=== PATIENT | female | born 1955 | race Hispanic/Latino ===

== ENCOUNTER 2016-07-30 11:37 | Inpatient (IN) | payer OTHER ==
[~2016-07-30] VITALS: Ht 162.6 cm; Wt 73.7 kg
[2016-07-30] VITALS (7 sets, daily range): BP systolic 179–215; BP diastolic 70–90; PULSE 60–76; RESP 15–20; O2SAT 94–98
[~2016-07-30 11:37] MED LIST: ATOR20TA65 PO; CARV12.52 PO; GLBR5T PO; HYDR25TA4 PO; IBUP200C PO; LOSA100T29 PO; METF1000 PO; SITA50TA PO
--- NOTE | 2016-07-30 13:43 | ED.REPORT ---
HPI-Dyspnea / Wheezing Date of Service Jul 30, 2016 ED Provider: Kristi Bolton MD 61 y/o female with a hx of HTN and diabetes presents to the ED complaining of constant chest pressure, onset 1 week ago. Pt also reports SOB, diaphoresis, lower extremity swelling. Pt denies cough, chills, fever, nausea and vomiting.Her sx are exacerbated by walking and laying down. She was unable to sleep last night due to the discomfort in her chest. Pt reports she currently feels better after taking Albuterol at the urgent care before arriving at the ED. She reports her sx are similar to but worse than the sx she experienced last year, which were accompanied by a headache unlike today. She took her BP medications today. Nursing Notes Stated Complaint: SOB Chief Complaint: Respiratory Complaints Nursing Notes Reviewed: Yes Allergies: Coded Allergies: No Known Allergies (Unverified , 12/04/15) Scheduled Atorvastatin Calcium (Atorvastatin Calcium) 20 Mg Tablet 20 MG PO HS Carvedilol (Carvedilol) 12.5 Mg Tablet 12.5 MG PO BIDWM Hydrochlorothiazide (Hydrochlorothiazide) 25 Mg Tablet 25 MG PO DAILY Losartan Potassium (Losartan Potassium) 100 Mg Tablet 100 MG PO DAILY Metformin (Glucophage) 1,000 Mg Tablet 1,000 MG PO BID Scheduled PRN Ibuprofen (Ibuprofen) 200 Mg Capsule 400 MG PO BID PRN PRN Headache General Time Seen by MD: 13:38 Chief Complaint Chest pain Hx Obtained From: Patient Arrived By: Walk-in Sudden in Onset?: Yes Onset Occurred: 1 week ago Symptom Duration: Constant Location: : Substernal Quality: Painful Severity: Current: Mild Severity: Maximum: Mild Recent Healthcare: No recent doctor visit Similar Sx Previous: Yes Past Medical History Past Medical History Diabetes mellitus, Type 2 Hypertension Hyperlipidemia Past Surgical History none reported Family History No pertinent family history Smoking History Never Smoker Social History Alcohol Use: Denies alcohol use Drug Use: Denies drug use Other Social History: Good social support, Local resident Ambulatory Status Independent Review of Systems Constitutional: Denies: Chills, Fever Respiratory: Reports: Shortness of breath, Denies: Non-productive cough Cardiovascular: Reports: Chest pain, Edema (Lower extremity swelling) Skin: Reports Diaphoresis Complete sys rev & neg: except as marked. GI: Denies: Nausea, Vomiting Physical Exam Initial Vital Signs Vital Signs (First) Date Time Temp Pulse Resp B/P Pulse Ox O2 Delivery O2 Flow Rate FiO2 07/30/16 11:54 36.2 64 20 215/90 95 Room Air Initial VS: Reviewed, Vital signs abnormal Head / Eyes: Atraumatic, Normocephalic, PERRL ENT: Mucous membranes moist, Conjunctiva normal, No scleral icterus Abdomen / GI: Soft, Non-tender, No guarding, No rebound, No distention Extremities: Vascular intact, Neuro intact, No swelling, No tenderness Skin: Warm, Dry, No cyanosis Neurologic: Alert, Oriented, Nonfocal Psychiatric: Mood/affect normal, Behavior normal, Normal thought content General/Constitutional: Awake, Alert, Well appearing, Cooperative, Not toxic appearing Neck: Atraumatic, Supple, Full range of motion Respiratory / Chest: Atraumatic, Breath sounds = bilat Bilateral Rales to midlung bases. Cardiovascular: Heart rate NL, Regular rhythm, Heart sounds NL, No gallop, No murmurs, No rubs 2+ edema bilaterally. Interpretation & Diagnostics Lab Results Interpretation Result Diagram: 07/30/16 1330 07/30/16 1330 Test 07/30/16 13:30 07/30/16 15:18 White Blood Count 5.9th/mm3 (3.8-10.1) Red Blood Count 3.12mil/mm3 (3.90-5.20) Hemoglobin 8.6g/dL (12.0-15.6) Hematocrit 28.0% (35.0-46.0) Mean Corpuscular Volume 89.7fL (81-100) Mean Corpuscular Hemoglobin 27.6pg (27.0-35.0) Mean Corpuscular Hemoglobin Concent 30.7% (32.0-37.0) Red Cell Distribution Width 12.6% (12.3-15.4) Platelet Count 118bil/L (150-400) Neutrophils (%) (Auto) 68.6% (40-74) Lymphocytes (%) (Auto) 21.8% (14-46) Monocytes (%) (Auto) 7.2% (4-12) Eosinophils (%) (Auto) 1.7% (0-5) Basophils (%) (Auto) 0.5% (0-3) Prothrombin Time 10.2sec (8.1-12.5) Prothromb Time International Ratio 0.95ratio Sodium Level 138mEq/L (134-144) Potassium Level 4.1mEq/L (3.5-5.2) Chloride Level 100mEq/L (97-108) Carbon Dioxide Level 24mmol/L (18-29) Blood Urea Nitrogen 36mg/dL (8-27) Creatinine 1.01mg/dL (0.57-1.00) Estimat Glomerular Filtration Rate 80mL/min (>59) Glucose Level 298mg/dL (60-99) Calcium Level 9.5mg/dL (8.5-10.1) Magnesium Level 1.8mg/dL (1.6-2.6) Total Bilirubin 0.2mg/dL (0.0-1.2) Aspartate Amino Transf (AST/SGOT) 14U/L (0-50) Alanine Aminotransferase (ALT/SGPT) 12U/L (0-32) Alkaline Phosphatase 72U/L (25-165) Troponin T < 0.010ug/L (0.0-0.011) Pro-B-Type Natriuretic Peptide 1832pg/mL (0-287) Total Protein 7.1g/dL (6.4-8.4) Albumin 4.0g/dL (3.4-5.0) Hold Lazo Top Tube Received (Received) Urine Color Straw (YELLOW) Urine Appearance Clear (CLEAR,HAZY) Urine pH 6.5 (5.0-8.0) Urine Specific [place] 1.020 (1.003-1.035) Urine Protein 100mg/dL (NEG,TRACE) Urine Glucose (UA) 250mg/dL (NEGATIVE) Urine Ketones Negativemg/dL (NEGATIVE) Urine Occult Blood Trace (NEGATIVE) Urine Nitrite Negative (NEGATIVE) Urine Bilirubin Negative (NEGATIVE) Urine Urobilinogen Normalmg/dL (NORMAL) Urine Leukocyte Esterase Negative (NEGATIVE) Urine RBC 0-2/hpf (0-2) Urine WBC 0-5/hpf (0-5) Urine Epithelial Cells Occasional/hpf (NONE-MOD) Urine Crystals None seen (NONE SEEN) Urine Bacteria None/hpf (NONE-FEW) Urine Hyaline Casts Occasional/lpf (NONE) Urine Granular Casts None seen (NONE SEEN) Urine Waxy Casts None seen (NONE SEEN) Urine Red Blood Cell Casts None seen (NONE SEEN) Urine White Blood Cell Casts None seen (NONE SEEN) Urine Mucus None seen (None Seen) Urine Trichomonas None seen (NONE SEEN) Urine Yeast None (NONE SEEN) Urinalysis Comment None Urine Culture Reflexed Not indicated ECG Interpretation ECG Interpretation: Sinus rate normal. 69 Normal Intervals No acute ST or T wave changes Time: 13:30 Interpreted by: ED physician X-Ray Chest Interpretation Chest Xray Interpretation: IMPRESSION: 1. Reticular-nodular interstitial prominence are similar to the prior exam and may be related to pulmonary edema or atypical infection. 2. Trace bilateral effusions. Dictated by: Tu Russell M.D. on 07/30/2016 at 13:26 Approved by: Tu Russell M.D. on 07/30/2016 at 13:28 View: Portable, 1 view Re-Eval/Medical Decision Med Decision/Clinical Course The patient presents with respiratory distress and hypertension. Her exam is consistent with congestive heart failure as is her x-ray and lab work. The patient was on nitroglycerin with improvement in her symptoms as well as Lasix. The patient was to receive IV blood pressure medication however it was not ordered in time, she went to the floor. The patient's hypertension may be related to her congestive heart failure may be causing her congestive heart failure. The patient was feeling improved after initial treatment. Source of Hx: Old records Re-Evaluation/Progress : Time of Eval: 15:15 Re-Evaluation/Progress Note: Pt rechecked. Informed pt of need for admission. Pt understands and agrees with the plan for admission. All questions addressed. Consultation : Referral / Consult Name: Marky Gill MD Consulted With: Hospitalist Call Returned at: 15:32 [employer]: Will see patient, Agrees with eval, Agrees with plan Counseled Regarding: Diagnosis, Lab results, Need for admission Discharge & Departure Impression: Primary Impression: CHF exacerbation Congestive heart failure type: unspecified congestive heart failure type Qualified Code: I50.9 - Heart failure, unspecified Additional Impression: Malignant hypertension Disposition: ADMITTED TO HOSPITAL Discharge Condition All VS Reviewed: Yes Referrals: Demetria Chadwick (PCP) Scribe Attestation Portions of this note were transcribed by Sheldon Carrillo and Victoria Matthew. I, , personally performed the history, physical exam and medical decision-making;I reviewed and confirmed the accuracy of the information in the transcribed note. Signed by Sheldon Carrillo and Dara Lawrence. 07/30/16 TIME copies to: Demetria Chadwick Jena M MD Jul 30, 2016 13:43 Sheldon Carrillo Jul 30, 2016 13:54
[2016-07-30] MEDS ORDERED: Nitroglycerin 2% 1 Gm Ointment TOPICAL ONE ×2 (13:55→14:30)
[2016-07-30 14:27] LABS: BASOPHILS % (AUTO) 0.5 % (0-3); EOSINOPHILS % (AUTO) 1.7 % (0-5); MONOCYTES % (AUTO) 7.2 % (4-12); Mean Corpuscular Hemoglobin 27.6 pg (27.0-35.0); Mean Corpuscular Volume 89.7 fL (81-100); NEUTROPHILS % (AUTO) 68.6 % (40-74); Platelet Count 118 bil/L (150-400)
--- NOTE | 2016-07-30 14:29 | DRSVH ---
PROCEDURE: X-RAY CHEST ONE VIEW, PORTABLE ([id number]) INDICATIONS: dyspnea TECHNIQUE: One view of the chest was acquired. COMPARISON: [facility], CR, XR CHEST 2VW, 07/30/2016, 10:32. FINDINGS: Surgical changes and devices: None. Lungs and pleura: Slight wedging of the right costophrenic angle and potentially the left costophreni c angle may be present. Reticulonodular interstitial prominence is again evident, which may be somew hat less prominent on the current study. No lobar consolidation or pneumothorax is evident. Mediastinum: Mediastinal contours appear normal. Heart size is normal. Bones and chest wall: No suspicious bony lesions. Overlying soft tissues appear unremarkable. IMPRESSION: 1. Reticular-nodular interstitial prominence are similar to the prior exam and may be related to pul monary edema or atypical infection. 2. Trace bilateral effusions. Dictated by: Tu Russell M.D. on 07/30/2016 at 13:26 Approved by: Tu Russell M.D. on 07/30/2016 at 13:28
[2016-07-30 14:42] LABS: INR 0.95 ratio
[2016-07-30 14:50] LABS: TROPONIN T < 0.010 ug/L (0.0-0.011)
[2016-07-30] MEDS ORDERED: Furosemide 10 mg/mL 4 mL Inj IVPUSH ONE (15:10)
[2016-07-30 15:35] LABS: APPEARANCE,URINE CLEAR (CLEAR,HAZY); COLOR,URINE STRAW (YELLOW)
[2016-07-30 15:36] LABS: OCCULT BLOOD,URINE TRACE (NEGATIVE); PH,URINE 6.5 (5.0-8.0); UROBILINOGEN,URINE NORMAL (NORMAL)
[2016-07-30] MEDS ORDERED: Polyethylene Glycol (PEG) 17 Gm Powder PO PRN (16:10)
[2016-07-30] MEDS ORDERED: ATEN50TA PO (16:10)
[2016-07-30] MEDS ORDERED: Alum-Mag Hydrox-Simeth 30 mL Suspension PO PRN (16:10)
[2016-07-30] MEDS ORDERED: Ondansetron 2 mg/mL 2 mL Inj IVPUSH PRN (16:10)
--- NOTE | 2016-07-30 16:46 | NUR ---
Admission Pt arrived to [facility] approx 1630 accompanied by family. Able to ambulate to BR. SBP still remains in high 190's-200s. A&Ox3, denies headache.
[2016-07-30] MEDS: Furosemide 10 mg/mL 2 mL Inj IVPUSH SCH (20:29)
[2016-07-30] MEDS: Sodium Chloride LOK Flush 10 mL Syringe IVFLUSH SCH (20:35)
--- NOTE | 2016-07-30 22:26 | PCM.HPMED ---
Subjective Date of Service Jul 30, 2016 Primary Provider: Admitting Physician: Marky Gill MD Primary Care Physician: Demetria Chadwick Attending Physician: Marky Gill MD Chief Complaint: "My blood pressure rised" History of Present Illness: Patient was seen with the [facility] collections manager u[employer]ana case #[id number]. Patient's daughter then showed up and also help to interpret. Patient's daughter is Heidy who is fluent in Upper Sorbian and Bulgarian patient is a pleasant 61-year-old female history of hypertension diabetes mellitus who presented to [facility] emergency room complaining of constant chest pressure with an onset of one week ago. Patient also reported shortness of breath, diaphoresis, lower extremity swelling. Patient denied any cough, chills, fever , nausea or vomiting. Her symptoms were exacerbated by walking and by laying down. Patient was unable to sleep last night due to the discomfort in her chest. Agent went to the clinic across the street from [facility] where "she always goes". Patient was found to have a very high blood pressure and patient was sent to [facility] emergency room. In the emergency room patient was found to have systolic blood pressure of 215 and diastolic of 90. Patient was given nitroglycerin and Lasix. Patient was found to have rales and 2+ edema on exam patient chest x-ray was found to have reticular-nodular interstitial prominence similar to prior exam and may be related to pulmonary edema and/or atypical infection. Patient had trace bilateral pleural effusions. Dr. Bolton felt that the patient presented with respiratory distress and hypertension. She felt that her exam was consistent with congestive heart failure as well as her x-ray and lab work. As the pro B-type natriuretic peptide was 1832. Patient had improvement in her symptoms with nitroglycerin and Lasix. The patient was to receive some IV blood pressure medication however patient was admitted to the hospitalist service And was admitted to the hospitalist service for further evaluation and treatment. Review of Systems: General: Patient is much more comfortable now after treatment in the emergency room. HEENT: Patient had a headache is relieved by taking two ibuprofen. The patient has some diabetic retinopathy and receives injections in her eyes partially every few months. She wears corrective lenses when needed Patient has no problems with their ears, nose or throat. Patient has no known dental problems. She has a few dental implants and has had some molars removed. Patient has no pharyngitis or history of thrush. Neck: Patient has no stiffness in the neck. Patient has no lymphadenopathy. Patient has no other problems with her neck. Pulmonary: Patient has no shortness of breath, no cough, no expectoration of sputum. Patient has no pleurisy. Patient has no chest pain. Patient has no history of asthma or COPD. Cardiovascular: Patient has no chest pain. Patient has no history of heart murmur. Patient has no palpitations. Patient has no history of myocardial infarction. Patient has no history of coronary artery disease. Gastrointestinal: Patient has no history of hepatitis A, B or C. Patient has no history of peptic ulcer disease. Patient has no history of gastroesophageal reflux disease. Patient has no history of nausea, vomiting, or diarrhea. Patient has no history of hematemesis, hematochezia, or melena. Patient has no history of colitis. Renal: Patient has no history of kidney disease. No history of kidney stones. Genitourinary: Patient has no history of dysuria, frequency, or incontinence. Patient has no previous history of genitourinary problems. Musculoskeletal: Patient has no history of muscular skeletal problems. Neurologic: Patient has no history of stroke, no history of seizure, no history of TIA. Psychiatric: Patient has no history of psychiatric problems. The remainder of the entire review of systems was reviewed with patient and is as mentioned above otherwise negative. Allergies Coded Allergies: No Known Allergies (Unverified , 12/04/15) Home Medications Scheduled Atorvastatin Calcium (Atorvastatin Calcium) 20 Mg Tablet 20 MG PO HS Carvedilol (Carvedilol) 12.5 Mg Tablet 12.5 MG PO BIDWM Hydrochlorothiazide (Hydrochlorothiazide) 25 Mg Tablet 25 MG PO DAILY Losartan Potassium (Losartan Potassium) 100 Mg Tablet 100 MG PO DAILY Metformin (Glucophage) 1,000 Mg Tablet 1,000 MG PO BID Scheduled PRN Ibuprofen (Ibuprofen) 200 Mg Capsule 400 MG PO BID PRN PRN Headache PMH Diabetes mellitus, type II Hypertension Hyperlipidemia Surgical History Patient denies any other surgery Family History Patient's father at the age of 87 of complications of COPD. He was a heavy smoker. Patient's mother is 82 years old and healthy Patient has 12 siblings and they are all healthy. Social History Hx Alcohol Use: No Hx Substance Use: No Hx Tobacco Use: No Smoking Status: Never Smoker Living Arrangement: with Family Additional Information Patient was born in [facility]. She moved to [facility] in 1989 and spent 2 years in [place]. Patient then moved to [place]. Patient has been for 44 years she is 5 para 5 and one child he currently lives in the area with her family. Exam Vital Signs Vital Sign - Last Date Time Temp Pulse Resp B/P Pulse Ox O2 Delivery O2 Flow Rate FiO2 07/30/16 19:59 36.7 60 18 179/73 98 Room Air Exam General: At the time of my exam patient was laying supine in bed with head elevated approximately 30 in no apparent distress. HEENT: Head is atraumatic and normocephalic. Eyes: Pupils are equally round and reactive to light and accommodation. Extraocular muscles are intact. Sclera are white, anicteric. Subconjunctival mucosa is pink. Ears and nose are unremarkable. Oropharynx: There are no mucosal lesions, there is no thrush , there is no pharyngitis. Neck: Is supple, there are no nodes, or masses or tenderness. Chest: Is significant for bibasilar rales. There are no wheezes or rubs. Heart: Rate, rhythm is regular. There is no murmur, rub or gallop. Abdomen: Good bowel sounds are present. Abdomen is mildly obese, soft, nontender, no organomegaly or masses were appreciated. Extremities: Are symmetrical and well perfused. There is no edema, there is no cellulitis, no rash. Neurologic: There are no focal neurological deficits. Cranial nerves II through XII are intact. There are no sensory or motor deficits. Psychiatric: Patients mood is calm and shows no sign of agitation. Genital: Deferred Rectal: Deferred Lab and Diagnostics Result Diagram: 07/30/16 1330 07/30/16 1330 X-Rays, CTs and MRIs PROCEDURE: X-RAY CHEST ONE VIEW, PORTABLE ([id number]) INDICATIONS: dyspnea TECHNIQUE: One view of the chest was acquired. COMPARISON: [facility], CR, XR CHEST 2VW, 07/30/2016, 10:32. FINDINGS: Surgical changes and devices: None. Lungs and pleura: Slight wedging of the right costophrenic angle and potentially the left costophrenic angle may be present. Reticulonodular interstitial prominence is again evident, which may be somewhat less prominent on the current study. No lobar consolidation or pneumothorax is evident. Mediastinum: Mediastinal contours appear normal. Heart size is normal. Bones and chest wall: No suspicious bony lesions. Overlying soft tissues appear unremarkable. IMPRESSION: 1. Reticular-nodular interstitial prominence are similar to the prior exam and may be related to pulmonary edema or atypical infection. 2. Trace bilateral effusions. Dictated by: Tu Russell M.D. on 07/30/2016 at 13:26 Approved by: Tu Russell M.D. on 07/30/2016 at 13:28 Assessment & Plan Patient was seen with the [facility] collections manager [place] case #[id number]. Patient's daughter then showed up and also help to interpret. Patient's daughter is eHidy who is fluent in Upper Sorbian and Bulgarian patient is a pleasant 61-year-old female history of hypertension diabetes mellitus who presented to [facility] emergency room complaining of constant chest pressure with an onset of one week ago. Patient also reported shortness of breath, diaphoresis, lower extremity swelling. Patient denied any cough, chills, fever , nausea or vomiting. Her symptoms were exacerbated by walking and by laying down. Patient was unable to sleep last night due to the discomfort in her chest. Agent went to the clinic across the street from [facility] where "she always goes". Patient was found to have a very high blood pressure and patient was sent to [facility] emergency room. In the emergency room patient was found to have systolic blood pressure of 215 and diastolic of 90. Patient was given nitroglycerin and Lasix. Patient was found to have rales and 2+ edema on exam patient chest x-ray was found to have reticular-nodular interstitial prominence similar to prior exam and may be related to pulmonary edema and/or atypical infection. Patient had trace bilateral pleural effusions. Dr. Bolton felt that the patient presented with respiratory distress and hypertension. She felt that her exam was consistent with congestive heart failure as well as her x-ray and lab work. As the pro B-type natriuretic peptide was 1832. Patient had improvement in her symptoms with nitroglycerin and Lasix. The patient was to receive some IV blood pressure medication however patient was admitted to the hospitalist service And was admitted to the hospitalist service for further evaluation and treatment. # Acute on chronic systolic congestive heart failure - Likely secondary to significant hypertension - Hypertensive urgency - We will start start Lasix along with beta romina and DAYANA inhibitor # Hypertensive urgency - We will continue with Lasix - We will increase carvedilol to 25 mg by mouth twice a day - We will add lisinopril # Hyperlipidemia - Continue statin as at home - Check lipid panel in a.m. Disposition: Patient is likely to be here more than 2 midnights for evaluation and treatment of the above problems. Therefore, patient was admitted as an inpatient. Pain Evaluation: Adequate Pain Control GI Prophylaxis: Proton Pump Inhibitor VTE Prophylaxis: Sub-Q Enoxaparin VTE Mechanical Devices: Intermittant Pneumatic CD Resuscitation Status: CPR: Attempt Resuscitation McintoshMarky MD Jul 30, 2016 22:26
[2016-07-31] VITALS (11 sets, daily range): BP systolic 174–190; BP diastolic 71–96; PULSE 58–72; RESP 16–18; O2SAT 91–96
--- NOTE | 2016-07-31 00:26 | NUR ---
BLOOD SUGAR At 2315, blood glucose was 254. Paged Dr. Herman "Blood glucose 254, no insulin ordered, only metformin. Would you like to order insulin?" Awaiting orders.
[2016-07-31] MEDS: Sodium Chloride LOK Flush 10 mL Syringe IVFLUSH SCH ×3 (00:27→16:52)
--- NOTE | 2016-07-31 01:41 | NUR ---
BLOOD PRESSURE Paged Dr. Herman "BP 174/71, no PRNs ordered." BP lowest since beginning of stay, pt still asymptomatic. Awaiting reply.
--- NOTE | 2016-07-31 04:53 | NUR ---
BP/BG BP this morning was 194/90. Blood sugar 195. Paged Dr. Herman again regarding these. Awaiting reply. Addendum: 07/31/16 at 0458 by IBRAHIMA SRIVASTAVA RN Called back, ordered to give carvedilol, losartan, and lasix early now.
[2016-07-31] MEDS: Furosemide 10 mg/mL 2 mL Inj IVPUSH SCH ×2 (05:09→21:22)
[2016-07-31] MEDS ORDERED: Furosemide 10 mg/mL 2 mL Inj IV ONE (05:25)
[2016-07-31 06:06] LABS: BASOPHILS % (AUTO) 0.7 % (0-3); EOSINOPHILS % (AUTO) 3.3 % (0-5); MONOCYTES % (AUTO) 11.2 % (4-12); Mean Corpuscular Hemoglobin 27.8 pg (27.0-35.0); Mean Corpuscular Volume 90.2 fL (81-100); NEUTROPHILS % (AUTO) 54.9 % (40-74); Platelet Count 119 bil/L (150-400)
[2016-07-31 06:45] LABS: Magnesium 1.6 mg/dL (1.6-2.6); Phosphorus 4.6 mg/dL (2.5-4.9)
[2016-07-31] MEDS: Pantoprazole 40 mg ER24 Tablet PO SCH (08:14)
--- NOTE | 2016-07-31 08:59 | DRSVH ---
PROCEDURE: X-RAY CHEST, TWO VIEWS ([id number]) INDICATIONS: Chest discomfort TECHNIQUE: 2 views of the chest were acquired. COMPARISON: [facility], CR, XR CHEST 1VW (PORTABLE), 07/30/2016, 14:03. FINDINGS: Surgical changes and devices: None. Lungs and pleura: No pleural effusions or pneumothorax. Unchanged blunting of the costophrenic angl es, unchanged. Mild appearance of increased pulmonary vascularity. Mediastinum: Mediastinal contours are normal. Heart size is normal. Bones and chest wall: No suspicious bony abnormalities. Soft tissues appear unremarkable. IMPRESSION: Mild increased pulmonary vascularity with likely trace effusions. Dictated by: Diane Jones M.D. on 07/31/2016 at 8:55 Approved by: Diane Jones M.D. on 07/31/2016 at 8:57
--- NOTE | 2016-07-31 11:50 | DRSVH ---
[facility] [address] [place] [address] Echocardiogram Report Name: IZAIAH NIETO Study Date: 07/31/2016 Height: 64 in Hospital Exam Location: [facility] Weight: 170 lb Gender: Female BSA: 1.8 m2 : 1955 Age: 61 yrs BP: 178/ 82 mmHg Reason For Study: Congestive Heart Failure Ordering Physician: HOSPITALIST [facility] Performed By: Dave Yeager Referring Physician: BERTA CURTIS Interpretation Summary The left ventricle is normal in size. Left ventricular wall thickness is borderline increased. The ejection fraction is estimated to be 55-60%. Left ventricular wall motion is normal. Assessment of diastolic parameters suggests a pseudonormalization pattern, consistent with elevated filling pressures. The right ventricle is normal in size, thickness and function. The IVC is of normal diameter and collapses greater than 50% with a sniff. This suggests a low right atrial pressure of 3 mm Hg. There is no significant valvular heart disease. No other echocardiographic abnormalities seen. Procedure: A two-dimensional transthoracic echocardiogram with color flow and Doppler was performed. The study quality was technically good. Comparison is made with the echocardiogram of 12/04/15. The patient was in normal sinus rhythm during the exam. Left Ventricle: The left ventricle is normal in size. Left ventricular wall thickness is borderline increased. The ejection fraction is estimated to be 55-60%. Left ventricular wall motion is normal. Assessment of diastolic parameters suggests a pseudonormalization pattern, consistent with elevated filling pressures. Right Ventricle: The right ventricle is normal in size, thickness and function. Atria: The left atrium is moderately dilated. Right atrial size is normal. The interatrial septum is intact with no evidence for an atrial septal defect. Mitral Valve: The mitral valve is normal. There is mild mitral regurgitation. Aortic Valve: The aortic valve is normal in structure and function. No aortic regurgitation is present. Tricuspid Valve: The tricuspid valve is normal. There is trace tricuspid regurgitation. The right ventricular systolic pressure is estimated at least 26 mmHg assuming a right atrial pressure of 3 mm Hg. Pulmonic Valve: The pulmonic valve is not well seen, but is grossly normal. There is no pulmonic valvular regurgitation. Great Vessels: The aortic root is normal size. The dimensions of the ascending aorta are normal. The pulmonary artery is normal size. The IVC is of normal diameter and collapses greater than 50% with a sniff. This suggests a low right atrial pressure of 3 mm Hg. Pericardium/ Pleura There is no pericardial effusion. There is a moderately large left-sided pleural effusion. MMode/2D Measurements & Calculations LVIDd: 4.6 cm RA long axis LVOT diam: 2.0 cm LVIDs: 3.1 cm LA A2 area: 22.1 cm AoV Opening FS: 33.9 % LA A4 area: 27.8 cm RA area EPSS: 0.66 cm LA length (vol) Ao root diam IVSd: 0.96 cm : 11.7 cm LVPWd: 1.1 cm LA vol: 85.0 ml RA vol asc Aorta Diam LA vol index : 27.2 ml RA Ao Arch Diam (Prox : 46.5 ml/m2 : 14.9 mm2 Trans): 2.5 cm LV roberts. diameter/BSA LV sys. diameter/BSA RVD1 (basal) RVD2 (mid): 3.2 cm (cm/m^2): 2.5 (cm/m^2): 1.7 TAPSE: 2.0 cm Doppler Measurements & Calculations Ao V2 max: 120.6 cm/secMV E max jono MV E/A: 1.2 TR max jono Ao max P.8 mmHg : 85.1 cm/sec Med Peak E' Jono : 239.0 cm/sec Ao mean P.4 mmHg MV A max jono TR max PG LVOT Max Jono : 72.8 cm/sec E/E' med: 16.0 : 22.8 mmHg : 85.8 cm/sec Lat Peak E' Jono PA V2 max : 73.9 cm/sec SERGIO(I,D): 2.3 cm E/E' lat: 14.9 PA mean PG sev ratio: 0.74 E/e' average : 1.3 mmHg MV dec time: 0.14 sec Ao V2 mean LV V1 max PG PA V2 mean : 87.4 cm/sec : 54.8 cm/sec Ao V2 VTI LV V1 VTI: 20.9 cmPA pr(Accel) : 31.5 mmHg SERGIO(V,D): 2.2 cm2 SERGIO indexed to BSA (cm^2/m^2): 1.3 Reading Physician:11:50 AM
[2016-07-31 15:20] LABS: Unsaturated Iron Binding 250.9 ug/dL
--- NOTE | 2016-07-31 16:07 | NUR ---
Social Work Note: Screen Note Data& Assessment: EMR reviewed. patient is a 61 y/o old female admitted on 07/30/16 for CHF Exacerbation and HTN. Pt has [employer] for insurance coverage and sees Demetria Chadwick for primary care. Pt lives in [place] with family and is independent at baseline. Pt is currently independent in her room. No discharge needs identified at this time. SW to continue to follow if any needs arise. Plan: Anticipated discharge home via POV when medically ready. No discharge needs identified at this time. SW to continue to follow if any needs arise. Perla Maza, DIDIER, ACM
--- NOTE | 2016-07-31 18:25 | PCM.PNMED ---
Subjective Date of Service Jul 31, 2016 Subjective The patient was seen with her family and her daughter Heidy acted as an box inspector as she is fluent in Lithuanian and in Monegasque. Patient is beginning to feel a bit better. She is less short of breath. She has no chest pain. She has no cough. Has no new complaints. Exam Vital Signs Vital Sign - Last Date Time Temp Pulse Resp B/P Pulse Ox O2 Delivery O2 Flow Rate FiO2 07/31/16 18:12 36.9 66 18 189/76 93 Room Air Intake and Output 07/30/16 07/30/16 07/31/16 Cumulative From/Thru 15:00 23:00 07:00 07/30/16 11:54 - 07/31/16 06:02 Intake Total 436 ml 400 ml 836 ml Output Total 1300 ml 1400 ml 2700 ml Balance -864 ml -1000 ml -1864 ml Intake Oral 436 ml 400 ml 836 ml Output Urine Total 1300 ml 1400 ml 2700 ml # Bowel Movements 0 0 0 Exam General: At the time of my exam patient was laying supine in bed with head elevated approximately 45 in no apparent distress. HEENT: Head is atraumatic and normocephalic. Eyes: Pupils are equally round and reactive to light and accommodation. Extraocular muscles are intact. Sclera are white, anicteric. Subconjunctival mucosa is pink. Ears and nose are unremarkable. Oropharynx: There are no mucosal lesions, there is no thrush , there is no pharyngitis. Neck: Is supple, there are no nodes, or masses or tenderness. Chest: Is significant for bibasilar rales. However, much clearer today. There are no wheezes or rubs. Heart: Rate, rhythm is regular. There is no murmur, rub or gallop. Abdomen: Good bowel sounds are present. Abdomen is mildly obese, soft, nontender, no organomegaly or masses were appreciated. Extremities: Are symmetrical and well perfused. There is no edema, there is no cellulitis, no rash. Neurologic: There are no focal neurological deficits. Cranial nerves II through XII are intact. There are no sensory or motor deficits. Psychiatric: Patients mood is calm and shows no sign of agitation. Genital: Deferred Rectal: Deferred Lab and Diagnostics Result Diagram: 07/31/16 0547 07/31/16 0547 X-Rays, CTs and MRIs PROCEDURE: X-RAY CHEST ONE VIEW, PORTABLE ([id number]) INDICATIONS: dyspnea TECHNIQUE: One view of the chest was acquired. COMPARISON: [facility], CR, XR CHEST 2VW, 07/30/2016, 10:32. FINDINGS: Surgical changes and devices: None. Lungs and pleura: Slight wedging of the right costophrenic angle and potentially the left costophrenic angle may be present. Reticulonodular interstitial prominence is again evident, which may be somewhat less prominent on the current study. No lobar consolidation or pneumothorax is evident. Mediastinum: Mediastinal contours appear normal. Heart size is normal. Bones and chest wall: No suspicious bony lesions. Overlying soft tissues appear unremarkable. IMPRESSION: 1. Reticular-nodular interstitial prominence are similar to the prior exam and may be related to pulmonary edema or atypical infection. 2. Trace bilateral effusions. Dictated by: Tu Russell M.D. on 07/30/2016 at 13:26 Approved by: Tu Russell M.D. on 07/30/2016 at 13:28 Cardiac Echo Impressions Echocardiogram Report Name: IZAIAH NIETO Study Date: 07/31/2016 Height: 64 in Hospital Exam Location: [facility] Weight: 170 lb Gender: Female BSA: 1.8 m2 : 1955 Age: 61 yrs BP: 178/ 82 mmHg Reason For Study: Congestive Heart Failure Ordering Physician: HOSPITALIST [facility] Performed By: Dave Yeager Referring Physician: MARKY GILL Interpretation Summary The left ventricle is normal in size. Left ventricular wall thickness is borderline increased. The ejection fraction is estimated to be 55-60%. Left ventricular wall motion is normal. Assessment of diastolic parameters suggests a pseudonormalization pattern, consistent with elevated filling pressures. The right ventricle is normal in size, thickness and function. The IVC is of normal diameter and collapses greater than 50% with a sniff. This suggests a low right atrial pressure of 3 mm Hg. There is no significant valvular heart disease. No other echocardiographic abnormalities seen. Assessment & Plan Patient was seen with the patella box inspector [place] case #[id number]. Patient's daughter then showed up and also helped to interpret. Patient's daughter is Heidy who is fluent in Monegasque and Lithuanian patient is a pleasant 61-year-old female history of hypertension diabetes mellitus who presented to [facility] emergency room complaining of constant chest pressure with an onset of one week ago. Patient also reported shortness of breath, diaphoresis, lower extremity swelling. Patient denied any cough, chills, fever , nausea or vomiting. Her symptoms were exacerbated by walking and by laying down. Patient was unable to sleep last night due to the discomfort in her chest. Agent went to the clinic across the street from [facility] where "she always goes". Patient was found to have a very high blood pressure and patient was sent to [facility] emergency room. In the emergency room patient was found to have systolic blood pressure of 215 and diastolic of 90. Patient was given nitroglycerin and Lasix. Patient was found to have rales and 2+ edema on exam patient chest x-ray was found to have reticular-nodular interstitial prominence similar to prior exam and may be related to pulmonary edema and/or atypical infection. Patient had trace bilateral pleural effusions. Dr. Bolton felt that the patient presented with respiratory distress and hypertension. She felt that her exam was consistent with congestive heart failure as well as her x-ray and lab work. As the pro B-type natriuretic peptide was 1832. Patient had improvement in her symptoms with nitroglycerin and Lasix. The patient was to receive some IV blood pressure medication however patient was admitted to the hospitalist service And was admitted to the hospitalist service for further evaluation and treatment. # Acute on chronic systolic congestive heart failure - Likely secondary to significant uncontrolled hypertension - Hypertensive urgency - We will continue Lasix along with twice a patient's usual dose of carvedilol and Cozaar. # Hypertensive urgency - We will continue with Lasix - We will increase carvedilol from 12.5 mg to 25 mg by mouth twice a day - We will continue Cozaar # Hyperlipidemia - Continue statin as at home - Check lipid panel in a.m. Disposition: Patient is likely to be here another 24-48 hours for the evaluation and treatment of the above problems. Pain Evaluation: Adequate Pain Control GI Prophylaxis: Proton Pump Inhibitor VTE Prophylaxis: Sub-Q Enoxaparin VTE Mechanical Devices: Intermittant Pneumatic CD Resuscitation Status: CPR: Attempt Resuscitation Marky Gill MD Jul 31, 2016 18:25
[2016-08-01] VITALS (10 sets, daily range): BP systolic 172–192; BP diastolic 78–96; PULSE 59–68; RESP 18; O2SAT 92–95
[2016-08-01] MEDS: Sodium Chloride LOK Flush 10 mL Syringe IVFLUSH SCH ×3 (01:05→17:03)
[2016-08-01 06:29] LABS: BASOPHILS % (AUTO) 0.7 % (0-3); EOSINOPHILS % (AUTO) 4.8 % (0-5); MONOCYTES % (AUTO) 8.6 % (4-12); Mean Corpuscular Hemoglobin 27.6 pg (27.0-35.0); Mean Corpuscular Volume 86.8 fL (81-100); NEUTROPHILS % (AUTO) 50.6 % (40-74); Platelet Count 139 bil/L (150-400)
[2016-08-01 07:00] LABS: Magnesium 1.6 mg/dL (1.6-2.6)
[2016-08-01] MEDS: Furosemide 10 mg/mL 2 mL Inj IVPUSH SCH ×2 (08:02→21:11)
[2016-08-01] MEDS: Pantoprazole 40 mg ER24 Tablet PO SCH (08:02)
[2016-08-02] VITALS (9 sets, daily range): BP systolic 170–198; BP diastolic 74–82; PULSE 57–75; RESP 14–18; O2SAT 92–96
[2016-08-02] MEDS: Sodium Chloride LOK Flush 10 mL Syringe IVFLUSH SCH ×3 (00:55→18:09)
--- NOTE | 2016-08-02 02:20 | PCM.PNMED ---
Subjective Date of Service August 01, 2016 Subjective Patient is feeling better. However she still concerned about her elevated blood pressure. Patient was seen with her daughter Heidy who is acting as an needle grader as Heidy is fluent and Kuwaiti and Chinese. Exam Vital Signs Vital Sign - Last Date Time Temp Pulse Resp B/P Pulse Ox O2 Delivery O2 Flow Rate FiO2 08/02/16 01:42 36.7 68 18 170/78 93 Room Air Intake and Output 08/01/16 08/01/16 08/02/16 Cumulative From/Thru 15:00 23:00 07:00 07/30/16 11:54 - 08/01/16 19:30 Intake Total 1000 ml 3216 ml Output Total 625 ml 4575 ml Balance 375 ml -1359 ml Intake Oral 1000 ml 3216 ml Output Urine Total 625 ml 4575 ml # Voids 4 # Bowel Movements 0 Exam General: At the time of my exam patient was laying supine in bed with head elevated approximately 30-45 in no apparent distress. HEENT: Head is atraumatic and normocephalic. Eyes: Pupils are equally round and reactive to light and accommodation. Extraocular muscles are intact. Sclera are white, anicteric. Subconjunctival mucosa is pink. Ears and nose are unremarkable. Oropharynx: There are no mucosal lesions, there is no thrush , there is no pharyngitis. Neck: Is supple, there are no nodes, or masses or tenderness. Chest: Breath sounds are much clearer today. There are no wheezes or rubs. Heart: Rate, rhythm is regular. There is no new murmur, rub or gallop. Abdomen: Good bowel sounds are present. Abdomen is mildly obese, soft, nontender, no organomegaly or masses were appreciated. Extremities: Are symmetrical and well perfused. There is no edema, there is no cellulitis, no rash. Neurologic: There are no focal neurological deficits. Cranial nerves II through XII are intact. There are no sensory or motor deficits. Psychiatric: Patients mood is calm and shows no sign of agitation. Genital: Deferred Rectal: Deferred Lab and Diagnostics Result Diagram: 08/01/16 0530 08/01/16 0530 X-Rays, CTs and MRIs PROCEDURE: X-RAY CHEST ONE VIEW, PORTABLE ([id number]) INDICATIONS: dyspnea TECHNIQUE: One view of the chest was acquired. COMPARISON: [facility], CR, XR CHEST 2VW, 07/30/2016, 10:32. FINDINGS: Surgical changes and devices: None. Lungs and pleura: Slight wedging of the right costophrenic angle and potentially the left costophrenic angle may be present. Reticulonodular interstitial prominence is again evident, which may be somewhat less prominent on the current study. No lobar consolidation or pneumothorax is evident. Mediastinum: Mediastinal contours appear normal. Heart size is normal. Bones and chest wall: No suspicious bony lesions. Overlying soft tissues appear unremarkable. IMPRESSION: 1. Reticular-nodular interstitial prominence are similar to the prior exam and may be related to pulmonary edema or atypical infection. 2. Trace bilateral effusions. Dictated by: Tu Russell M.D. on 07/30/2016 at 13:26 Approved by: Tu Russell M.D. on 07/30/2016 at 13:28 Cardiac Echo Impressions Echocardiogram Report Name: IZAIAH NIETO Study Date: 07/31/2016 Height: 64 in Hospital Exam Location: [facility] Weight: 170 lb Gender: Female BSA: 1.8 m2 : 1955 Age: 61 yrs BP: 178/ 82 mmHg Reason For Study: Congestive Heart Failure Ordering Physician: HOSPITALIST [facility] Performed By: Dave Yeager Referring Physician: MARKY CURTIS Interpretation Summary The left ventricle is normal in size. Left ventricular wall thickness is borderline increased. The ejection fraction is estimated to be 55-60%. Left ventricular wall motion is normal. Assessment of diastolic parameters suggests a pseudonormalization pattern, consistent with elevated filling pressures. The right ventricle is normal in size, thickness and function. The IVC is of normal diameter and collapses greater than 50% with a sniff. This suggests a low right atrial pressure of 3 mm Hg. There is no significant valvular heart disease. No other echocardiographic abnormalities seen. Assessment & Plan Patient was seen with the patella needle grader [place] case #[id number]. Patient's daughter then showed up and also helped to interpret. Patient's daughter is Heidy who is fluent in Kuwaiti and Chinese patient is a pleasant 61-year-old female history of hypertension diabetes mellitus who presented to [facility] emergency room complaining of constant chest pressure with an onset of one week ago. Patient also reported shortness of breath, diaphoresis, lower extremity swelling. Patient denied any cough, chills, fever , nausea or vomiting. Her symptoms were exacerbated by walking and by laying down. Patient was unable to sleep last night due to the discomfort in her chest. Agent went to the clinic across the street from [facility] [place] where "she always goes". Patient was found to have a very high blood pressure and patient was sent to [facility] emergency room. In the emergency room patient was found to have systolic blood pressure of 215 and diastolic of 90. Patient was given nitroglycerin and Lasix. Patient was found to have rales and 2+ edema on exam patient chest x-ray was found to have reticular-nodular interstitial prominence similar to prior exam and may be related to pulmonary edema and/or atypical infection. Patient had trace bilateral pleural effusions. Dr. Bolton felt that the patient presented with respiratory distress and hypertension. She felt that her exam was consistent with congestive heart failure as well as her x-ray and lab work. As the pro B-type natriuretic peptide was 1832. Patient had improvement in her symptoms with nitroglycerin and Lasix. The patient was to receive some IV blood pressure medication however patient was admitted to the hospitalist service And was admitted to the hospitalist service for further evaluation and treatment. # Acute on chronic systolic congestive heart failure, present on admission. Active and ongoing - Likely secondary to significant uncontrolled hypertension - Hypertensive urgency. The patient's blood pressure has improved but is not quite yet controlled - We will continue Lasix along with TWICE the patient's usual dose of carvedilol. - We will continue Cozaar. # Hypertensive urgency, present at the time of admission. Active and ongoing. - We will continue with Lasix - We will increase carvedilol from 12.5 mg to 25 mg by mouth twice a day - We will continue Cozaar - We will add amlodipine today # Hyperlipidemia - Continue statin as at home - Check lipid panel in a.m. Disposition: Patient is likely to be here another 24-48 hours for the evaluation and treatment of the above problems. Dr. Dorsey will follow in a.m. Pain Evaluation: Adequate Pain Control GI Prophylaxis: Proton Pump Inhibitor VTE Prophylaxis: Sub-Q Enoxaparin VTE Mechanical Devices: Intermittant Pneumatic CD Resuscitation Status: CPR: Attempt Resuscitation WapelloMarky otto MD August 02, 2016 02:20
--- NOTE | 2016-08-02 05:13 | NUR ---
Noc/HTN Pt has been having elevated Blood pressure throughout the night. Latest BP of 185/77. MD notified and aware of values. Pt denies chest pain, sob, n/v or abd discomfort. Has been pleasant and cooperative with care. Pt's help with communication. Hourly rounding in effect and pt has slept most of the night.
[2016-08-02 06:15] LABS: BASOPHILS % (AUTO) 0.6 % (0-3); MONOCYTES % (AUTO) 9.1 % (4-12); Mean Corpuscular Volume 88.8 fL (81-100); NEUTROPHILS % (AUTO) 52.6 % (40-74); Platelet Count 156 bil/L (150-400)
[2016-08-02 07:50] LABS: Magnesium 1.5 mg/dL (1.6-2.6)
[2016-08-02] MEDS ORDERED: Magnesium Sulf 2 Gm/50mL Water 2 GM in IV Premix 1 EACH IV ONE (09:15)
--- NOTE | 2016-08-02 09:50 | DRSVH ---
PROCEDURE: X-RAY CHEST, TWO VIEWS ([id number]) INDICATIONS: Follow up for CHF TECHNIQUE: 2 views of the chest were acquired. COMPARISON: [facility], CR, XR CHEST 1VW (PORTABLE), 12/04/2015, 11:53. [facility], CR, XR CHEST 2VW, 07/31/2016, 8:37. [facility], CR, XR CHEST 1VW (PORTABLE), 07/30, 14:03. FINDINGS: Surgical changes and devices: None. Lungs and pleura: No new pleural effusions or pneumothorax, and the previously present posterior cos tophrenic sulcus pleural effusions seen recently had diminished to almost complete resolution. Lungs are now clear. Old calcified granuloma lateral left midlung Mediastinum: Mediastinal contours are normal. Heart size is normal. Bones and chest wall: No suspicious bony abnormalities. Soft tissues appear unremarkable. IMPRESSION: Resolution of pulmonary edema, reduction of bilateral small pleural effusions previously present. No change in old granuloma lateral left midlung Dictated by: Afshin Garcia M.D. on 08/02/2016 at 9:48 Approved by: Afshin Garcia M.D. on 08/02/2016 at 9:49
[2016-08-02] MEDS: Pantoprazole 40 mg ER24 Tablet PO SCH (09:58)
--- NOTE | 2016-08-02 12:29 | PCM.PNMED ---
Subjective Date of Service August 02, 2016 Subjective pt c/o mild headache this morning noted [id number] noticed that pt was on [id number] at home, stated that previous regimen from last year was working but somehow changed as she was not allowed to take "blue pill" denied any other complaints, no sob, chest pain, CUEVAS, dizziness Exam Vital Signs Vital Sign - Last Date Time Temp Pulse Resp B/P Pulse Ox O2 Delivery O2 Flow Rate FiO2 08/02/16 09:32 67 08/02/16 08:45 36.5 16 198/81 95 Room Air Intake and Output 08/01/16 08/01/16 08/02/16 Cumulative From/Thru 15:00 23:00 07:00 07/30/16 11:54 - 08/01/16 19:30 Intake Total 1000 ml 3216 ml Output Total 625 ml 4575 ml Balance 375 ml -1359 ml Intake Oral 1000 ml 3216 ml Output Urine Total 625 ml 4575 ml # Voids 4 # Bowel Movements 0 Exam NAD, comfortably laying down on the bed no JVD, MMM, no LAD RRR, nl s1, s2 no mrg bibasilar crackles S,ND,NT,normoactive BS+ warm, 1+pitting edema, pulses 2/2 IVs and Medications Medications Reviewed: Medications were reviewed in detail Lab and Diagnostics Result Diagram: 08/02/16 0535 08/02/16 0535 X-Rays, CTs and MRIs PROCEDURE: X-RAY CHEST ONE VIEW, PORTABLE ([id number]) INDICATIONS: dyspnea TECHNIQUE: One view of the chest was acquired. COMPARISON: [facility], CR, XR CHEST 2VW, 07/30/2016, 10:32. FINDINGS: Surgical changes and devices: None. Lungs and pleura: Slight wedging of the right costophrenic angle and potentially the left costophrenic angle may be present. Reticulonodular interstitial prominence is again evident, which may be somewhat less prominent on the current study. No lobar consolidation or pneumothorax is evident. Mediastinum: Mediastinal contours appear normal. Heart size is normal. Bones and chest wall: No suspicious bony lesions. Overlying soft tissues appear unremarkable. IMPRESSION: 1. Reticular-nodular interstitial prominence are similar to the prior exam and may be related to pulmonary edema or atypical infection. 2. Trace bilateral effusions. Dictated by: Tu Russell M.D. on 07/30/2016 at 13:26 Approved by: Tu Russell M.D. on 07/30/2016 at 13:28 Cardiac Echo Impressions Echocardiogram Report Name: IZAIAH NIETO Study Date: 07/31/2016 Height: 64 in Hospital Exam Location: [facility] Weight: 170 lb Gender: Female BSA: 1.8 m2 : 1955 Age: 61 yrs BP: 178/ 82 mmHg Reason For Study: Congestive Heart Failure Ordering Physician: HOSPITALIST [facility] Performed By: Dave Yeager Referring Physician: BERTA CURTIS Interpretation Summary The left ventricle is normal in size. Left ventricular wall thickness is borderline increased. The ejection fraction is estimated to be 55-60%. Left ventricular wall motion is normal. Assessment of diastolic parameters suggests a pseudonormalization pattern, consistent with elevated filling pressures. The right ventricle is normal in size, thickness and function. The IVC is of normal diameter and collapses greater than 50% with a sniff. This suggests a low right atrial pressure of 3 mm Hg. There is no significant valvular heart disease. No other echocardiographic abnormalities seen. Assessment & Plan Patient was seen with the patella drawer in [place] case #[id number]. Patient's daughter then showed up and also helped to interpret. Patient's daughter is Heidy who is fluent in Lao and Estonian patient is a pleasant 61-year-old female history of hypertension diabetes mellitus who presented to [facility] emergency room complaining of constant chest pressure with an onset of one week ago. Patient also reported shortness of breath, diaphoresis, lower extremity swelling. Patient denied any cough, chills, fever , nausea or vomiting. Her symptoms were exacerbated by walking and by laying down. Patient was unable to sleep last night due to the discomfort in her chest. Agent went to the clinic across the street from [facility] where "she always goes". Patient was found to have a very high blood pressure and patient was sent to [facility] emergency room. In the emergency room patient was found to have systolic blood pressure of 215 and diastolic of 90. Patient was given nitroglycerin and Lasix. Patient was found to have rales and 2+ edema on exam patient chest x-ray was found to have reticular-nodular interstitial prominence similar to prior exam and may be related to pulmonary edema and/or atypical infection. Patient had trace bilateral pleural effusions. Dr. Bolton felt that the patient presented with respiratory distress and hypertension. She felt that her exam was consistent with congestive heart failure as well as her x-ray and lab work. As the pro B-type natriuretic peptide was 1832. Patient had improvement in her symptoms with nitroglycerin and Lasix. The patient was to receive some IV blood pressure medication however patient was admitted to the hospitalist service And was admitted to the hospitalist service for further evaluation and treatment. acute, active # Hypertensive emergency with signs of end organ damage-pulmonary edema, acute CHF. no signs of ACS based on EKG no ischemic chg, serial trops were negative. -BP still remains uncontrolled 180-190s w/o symptoms. - We will increase carvedilol from 12.5 mg to 25 mg by mouth twice a day 08/01 - We will continue [id number] - added amlodipine 5mg qd 08/01 - added HCTZ 12.5mg qd today, (home dose 25mg) monitor lytes closely - stopped home atenolol -patient doesn't recall any workups for secondary HTN, added plasma renin, aldosterone. metanephrine, get renal doppler, likely to be followed up in the clinic upon d.c # Acute on chronic diastolic congestive heart failure, present on admission. TTE 07/31 showed normal EF, LVH, pseudonormalization pattern suggestive of diastolic dysfunction, no valvular dz. LVH likely in the setting of longstanding uncontrolled hypertension - s/p lasix 20iv bid, responded well so far, hold today given worsening renal function, will likely resume once renal function more stable. -monitor i/o, daily wt, dietary consult placed # Hyperlipidemia - Continue statin as at home - Check lipid panel in a.m. Disposition: likely 1-2 more days. GI Prophylaxis: Proton Pump Inhibitor VTE Prophylaxis: Sub-Q Enoxaparin VTE Mechanical Devices: Intermittant Pneumatic CD Resuscitation Status: CPR: Attempt Resuscitation Time spent 35min Kayce Dorsey MD August 02, 2016 12:29
[2016-08-02] MEDS ORDERED: hydrALAZINE 20 mg/mL Inj IV PRN (12:35)
--- NOTE | 2016-08-02 14:46 | NUR ---
NUTRITION CONSULT/EDUCATION Provided pt with diet instruction on low sodium diet and diabetic diet. Pt receptive to information, no questions at this time. Croatian hdts left with pt. Pt interested in outpatient diabetes education, referral sent to outpatient diabetes program.
--- NOTE | 2016-08-02 19:27 | NUR ---
Hypertension Pt. has remained hypertensive all day, not dropping below a systolic of 180 despite increased BP medication and PRN PO hydralazine. Pt. is asymptomatic and family states her BP is chronically this high. MD is aware of HTN. Will continue to monitor and administer hydralazine as needed.
[2016-08-03] VITALS (9 sets, daily range): BP systolic 122–197; BP diastolic 57–91; PULSE 55–66; RESP 16–17; O2SAT 90–96
[2016-08-03] MEDS: Sodium Chloride LOK Flush 10 mL Syringe IVFLUSH SCH ×4 (00:30→23:31)
[2016-08-03 06:30] LABS: EOSINOPHILS % (AUTO) 4.2 % (0-5); MONOCYTES % (AUTO) 7.3 % (4-12); Mean Corpuscular Hemoglobin 27.6 pg (27.0-35.0); Mean Corpuscular Volume 89.3 fL (81-100); NEUTROPHILS % (AUTO) 48.4 % (40-74); Platelet Count 159 bil/L (150-400)
[2016-08-03 06:54] LABS: Magnesium 2.2 mg/dL (1.6-2.6)
[2016-08-03 07:12] LABS: Vitamin B12 302 pg/mL (211-946)
--- NOTE | 2016-08-03 08:12 | NUR ---
Uneventful Night Pt rested through the night with no complaints of pain or discomfort. Denies SOB, n/v. Call light within reach, using appropriately. Hourly rounding. Pleasant and cooperative with care.
[2016-08-03] MEDS: Pantoprazole 40 mg ER24 Tablet PO SCH (08:16)
--- NOTE | 2016-08-03 11:00 | PCM.PNMED ---
Subjective Date of Service August 03, 2016 Subjective pt denied any complaints, no orthopnea, PND no cough, CUEVAS, dizziness, eating well no n/v BP still remains 170-180s Exam Vital Signs Vital Sign - Last Date Time Temp Pulse Resp B/P Pulse Ox O2 Delivery O2 Flow Rate FiO2 08/03/16 09:34 64 08/03/16 09:12 36.9 17 197/69 94 Room Air Intake and Output 08/02/16 08/02/16 08/03/16 Cumulative From/Thru 14:59 22:59 06:59 07/30/16 11:54 - 08/02/16 19:41 Intake Total 200 ml 950 ml 4366 ml Output Total 1050 ml 800 ml 6425 ml Balance -850 ml 150 ml -2059 ml Intake Oral 200 ml 900 ml 4316 ml IV Total 50 ml 50 ml Output Urine Total 1050 ml 800 ml 6425 ml # Voids 4 # Bowel Movements 0 Exam NAD, comfortably laying down on the bed no JVD, MMM, no LAD RRR, nl s1, s2 no mrg bibasilar crackles S,ND,NT,normoactive BS+ warm, 1+pitting edema, pulses 2/2 IVs and Medications Medications Reviewed: Medications were reviewed in detail Lab and Diagnostics Result Diagram: 08/03/1654408/03/16544 X-Rays, CTs and MRIs PROCEDURE: X-RAY CHEST ONE VIEW, PORTABLE ([id number]) INDICATIONS: dyspnea TECHNIQUE: One view of the chest was acquired. COMPARISON: [facility], CR, XR CHEST 2VW, 07/30/2016, 10:32. FINDINGS: Surgical changes and devices: None. Lungs and pleura: Slight wedging of the right costophrenic angle and potentially the left costophrenic angle may be present. Reticulonodular interstitial prominence is again evident, which may be somewhat less prominent on the current study. No lobar consolidation or pneumothorax is evident. Mediastinum: Mediastinal contours appear normal. Heart size is normal. Bones and chest wall: No suspicious bony lesions. Overlying soft tissues appear unremarkable. IMPRESSION: 1. Reticular-nodular interstitial prominence are similar to the prior exam and may be related to pulmonary edema or atypical infection. 2. Trace bilateral effusions. Dictated by: Tu Russell M.D. on 07/30/2016 at 13:26 Approved by: Tu Russell M.D. on 07/30/2016 at 13:28 Cardiac Echo Impressions Echocardiogram Report Name: IZAIAH NIETO Study Date: 07/31/2016 Height: 64 in Hospital Exam Location: [facility] Weight: 170 lb Gender: Female BSA: 1.8 m2 : 1955 Age: 61 yrs BP: 178/ 82 mmHg Reason For Study: Congestive Heart Failure Ordering Physician: HOSPITALIST [facility] Performed By: Dave Yeager Referring Physician: BERTA CURTIS Interpretation Summary The left ventricle is normal in size. Left ventricular wall thickness is borderline increased. The ejection fraction is estimated to be 55-60%. Left ventricular wall motion is normal. Assessment of diastolic parameters suggests a pseudonormalization pattern, consistent with elevated filling pressures. The right ventricle is normal in size, thickness and function. The IVC is of normal diameter and collapses greater than 50% with a sniff. This suggests a low right atrial pressure of 3 mm Hg. There is no significant valvular heart disease. No other echocardiographic abnormalities seen. Assessment & Plan Patient was seen with the patella diplomatic interpreter/translator [place] case #[id number]. Patient's daughter then showed up and also helped to interpret. Patient's daughter is Heidy who is fluent in Anguillan and Zambian patient is a pleasant 61-year-old female history of hypertension diabetes mellitus who presented to [facility] emergency room complaining of constant chest pressure with an onset of one week ago. Patient also reported shortness of breath, diaphoresis, lower extremity swelling. Patient denied any cough, chills, fever , nausea or vomiting. Her symptoms were exacerbated by walking and by laying down. Patient was unable to sleep last night due to the discomfort in her chest. Agent went to the clinic across the street from [facility] where "she always goes". Patient was found to have a very high blood pressure and patient was sent to [facility] emergency room. In the emergency room patient was found to have systolic blood pressure of 215 and diastolic of 90. Patient was given nitroglycerin and Lasix. Patient was found to have rales and 2+ edema on exam patient chest x-ray was found to have reticular-nodular interstitial prominence similar to prior exam and may be related to pulmonary edema and/or atypical infection. Patient had trace bilateral pleural effusions. Dr. Bolton felt that the patient presented with respiratory distress and hypertension. She felt that her exam was consistent with congestive heart failure as well as her x-ray and lab work. As the pro B-type natriuretic peptide was 1832. Patient had improvement in her symptoms with nitroglycerin and Lasix. The patient was to receive some IV blood pressure medication however patient was admitted to the hospitalist service And was admitted to the hospitalist service for further evaluation and treatment. acute, active # Hypertensive emergency with signs of end organ damage-pulmonary edema, acute CHF. no signs of ACS based on EKG no ischemic chg, serial trops were negative. -BP still remains uncontrolled 170s w/o symptoms. -continue coreg 25 mg bid, [id number] - amlodipine increased from 5 to 10mg today - HCTZ 12.5mg qd increased to 25mg(home dose) monitor lytes closely - hydralzine qid prn for SBP>180s - stopped home atenolol - patient doesn't recall any workups for secondary HTN, added plasma renin, aldosterone. metanephrine, get renal doppler, likely to be followed up in the clinic upon d.c # Acute on chronic diastolic congestive heart failure, present on admission. TTE 07/31 showed normal EF, LVH, pseudonormalization pattern suggestive of diastolic dysfunction, no valvular dz. LVH likely in the setting of longstanding uncontrolled hypertension - s/p lasix 20iv bid, responded well,currently seems euvolemic, held due to worsening renal function, -monitor i/o, daily wt, dietary consult placed # Hyperlipidemia - Continue statin as at home - Check lipid panel in a.m. Disposition: likely tomorrow home, GI Prophylaxis: Proton Pump Inhibitor VTE Prophylaxis: Sub-Q Enoxaparin VTE Mechanical Devices: Intermittant Pneumatic CD Resuscitation Status: CPR: Attempt Resuscitation Time spent 35min Kayce Dorsey MD August 03, 2016 10:59
--- NOTE | 2016-08-03 11:12 | DRSVH ---
PROCEDURE: US RENAL WITH ARTERIES DUPLEX DOPPLER SONOGRAM, LIMITED INDICATIONS: to rule out renal artery stenosis TECHNIQUE: Real time scanning was performed of both kidneys, followed by Color and pulsed Doppler in terrogation of the renal vessels. COMPARISON: None. FINDINGS: Aortic peak systolic velocity: 64 cm/s. Right side: Rojas-scale imaging: Kidney is 11.2 cm long; renal cortical thickness is 1.0 cm. No hydronephrosis. No nephrolithiasis. Renal cortex is normal in echogenicity. No suspicious solid renal masses. Proximal renal artery peak systolic velocity: Not visualized. Mid renal artery peak systolic velocity: Not visualized. Distal renal artery peak systolic velocity: 123 cm/s. Renal vein: Patent, without thrombus. Peak renal/aortic ratio (RAR): 1.9. Left side: Rojas-scale imaging: Kidney is 11.1 cm long; renal cortical thickness is 1.3 cm. No hydronephrosis. No nephrolithiasis. Renal cortex is normal in echogenicity. No suspicious solid renal masses. Proximal renal artery peak systolic velocity: Not visualized. Mid-renal artery peak systolic velocity: Not visualized. Distal renal artery peak systolic velocity: 97 cm/s. Renal vein: Patent, without thrombus. Peak renal/aortic ratio (RAR): 1.5. IMPRESSION: Limited examination secondary to overlying bowel gas and the proximal/mid renal arteries are not seen bilaterally. If indicated MRA could be performed. Dictated by: Chapo Gould [facility] Interpreted: Roby Brooks MD on 08/03/2016 at 11:10 Transcribed by: MELANIE on 08/03/2016 at 11:12 Approved by: Roby Brooks M.D. on 08/03/2016 at 14:23
--- NOTE | 2016-08-03 11:58 | NUR ---
BG AC/BG today 183 and now 277. Pt takes PO meds at home. Message sent to provider. waiting for further orders. Addendum: 08/03/16 at 1912 by RAFFI ESTRADA RN AC/HS insulin ordered.
[2016-08-03] MEDS: Insulin LISPRO 300 Unit/3 mL Inj SUBQ SCH ×2 (17:24→21:55)
[2016-08-04 00:36] VITALS: BP 149/73; PULSE 66; RESP 16; O2SAT 93
--- NOTE | 2016-08-04 01:38 | NUR ---
Uneventful Night: Pt rested through the night with no complaints of cardiac pain or discomfort. Denies SOB, n/v. Family at bedside. Call light within reach, using appropriately. Bed locked, low position. Pleasant and cooperative with care.
[2016-08-04 06:13] VITALS: BP 178/82; PULSE 70; RESP 16; O2SAT 93
[2016-08-04 06:20] LABS: BASOPHILS % (AUTO) 0.4 % (0-3); EOSINOPHILS % (AUTO) 4.1 % (0-5); MONOCYTES % (AUTO) 10.8 % (4-12); Mean Corpuscular Volume 88.9 fL (81-100); NEUTROPHILS % (AUTO) 50.4 % (40-74); Platelet Count 161 bil/L (150-400)
[2016-08-04 06:59] LABS: Magnesium 1.9 mg/dL (1.6-2.6)
[2016-08-04] MEDS ORDERED: AMLO5TAB2 PO (07:20)
[2016-08-04] MEDS ORDERED: CARV25TA2 PO (07:20)
[2016-08-04] MEDS ORDERED: HYDR25TA4 PO (07:21)
[2016-08-04] MEDS ORDERED: 0.9% Sodium Chloride 500 ML IV ONE (07:25)
[2016-08-04] MEDS ORDERED: GLIM1TAB PO (07:26)
[2016-08-04] MEDS: Pantoprazole 40 mg ER24 Tablet PO SCH (08:04)
[2016-08-04] MEDS: Sodium Chloride LOK Flush 10 mL Syringe IVFLUSH SCH (08:05)
[2016-08-04] MEDS: Insulin LISPRO 300 Unit/3 mL Inj SUBQ SCH ×2 (08:08→11:50)
[2016-08-04 10:15] VITALS: BP 154/73; PULSE 59; RESP 16; O2SAT 95
[2016-08-04] MEDS ORDERED: ASPI-973 PO (10:49)
--- NOTE | 2016-08-04 10:49 | PCM.DIMED ---
Discharge Instructions Date of Service August 04, 2016 Dates of Hospitalization Jul 30, 2016 at 16:22 Discharge Diagnosis Discharge Diagnosis Hypertensive emergency Acute on chronic diastolic heart failure Medication Instructions Blood pressure regimen: Coreg 25mg twice a day Losartan 100mg daily in the morning amlodipine 10mg in the evening Hydrochlorothiazide 25mg in the morning Diabetes regimen continue metformin 1000mg twice a day Glimepride 1mg daily in the morning, added to control your sugar better. continue atorvastatin 20mg at bed time stop taking ibuprofen to protect your kidneys take [id number] daily to prevent stroke or heart attack in the future. Diet Low fat, Low Sodium, Heart Healthy, Diabetic Activity No restrictions Call your provider Shortness of breath, Chest pain Patient Instructions You were hospitalized with difficulty breathing, uncontrolled blood pressure. Your blood pressure regimen was optimized. You also received water pill to remove jj in your lungs. Please note that you were consulted with dietitian regarding low-sodium, healthy diet, please follow the instruction. Pleas note that blood pressure control is the most important to prevent future similar episode. Get a blood pressure cuff and measure it once a day at a certain times, Please check your sugar first thing in the morning, bring those record to your doctor to adjust medicine. All of the instruction was discussed via manager of change. Follow-up Provider: Demetria Chadwick Follow-up with PCP in: 2 weeks Kayce Dorsey MD August 04, 2016 09:29
[2016-08-04 10:56] VITALS: PULSE 67
--- NOTE | 2016-08-04 11:15 | NUR ---
SW- Readiness for Discharge/Discharge Data: Pt is on day 5 of hospitalization for CHF exacerbation, HTN. EMR reviewed. Pt is medically cleared for discharge and is up and independent in room. Pt to discharge home via family with no needs identified. All updated and agreeable to plan. Assessment: Pt who resides with family and is independent at baseline Plan: Pt to discharge home via POV with no needs identified. ANDREY Russell
[2016-08-04 13:50] VITALS: BP 135/73; PULSE 60; RESP 16; O2SAT 95
--- NOTE | 2016-08-04 14:17 | NUR ---
Discharge Pt d/c home with daughter and at 1412 ambulating off unit with primary RN. Pt denied having pain. IV d/c prior to leaving. Outpatient Requisition given to pt for repeat Cmet panel prior to appt with PCP on 08/09, pt states will get lab drawn on the . Discharge info discussed while family present and face to face engineering and operations director used. All questions answered. All personal belongings left with pt, VSS.
--- NOTE | 2016-08-04 15:02 | PCM.DC.MED ---
Discharge Summary Date of Service August 04, 2016 Dates of Hospitalization Date of Hospital Admission Jul 30, 2016 at 16:22 Date of Discharge: August 04, 2016 Providers: Admitting Physician: Berta Gill MD Primary Care Physician: Demetria Chadwick Attending Physician: Berta Gill MD Diagnosis at Time of Discharge Diagnosis at Time of Discharge Hypertensive emergency with signs of end organ damage-pulmonary edema, acute CHF. Acute on chronic diastolic heart failure Hyperlipidemia ORESTES,likely due to diuresis, NSAID. mild transaminitis, new onset, it was thought to be medicine induced, polypharmacy Procedures XRay, CTs & MRIs PROCEDURE: X-RAY CHEST ONE VIEW, PORTABLE ([id number]) INDICATIONS: dyspnea TECHNIQUE: One view of the chest was acquired. COMPARISON: [facility], , XR CHEST 2VW, 07/30/2016, 10:32. FINDINGS: Surgical changes and devices: None. Lungs and pleura: Slight wedging of the right costophrenic angle and potentially the left costophrenic angle may be present. Reticulonodular interstitial prominence is again evident, which may be somewhat less prominent on the current study. No lobar consolidation or pneumothorax is evident. Mediastinum: Mediastinal contours appear normal. Heart size is normal. Bones and chest wall: No suspicious bony lesions. Overlying soft tissues appear unremarkable. IMPRESSION: 1. Reticular-nodular interstitial prominence are similar to the prior exam and may be related to pulmonary edema or atypical infection. 2. Trace bilateral effusions. Dictated by: Tu Rsusell M.D. on 07/30/2016 at 13:26 Approved by: Tu Russell M.D. on 07/30/2016 at 13:28 Cardiac Echo Impression Echocardiogram Report Name: IZAIAH NIETO Study Date: 07/31/2016 Height: 64 in Hospital Exam Location: [facility] Weight: 170 lb Gender: Female BSA: 1.8 m2 : 1955 Age: 61 yrs BP: 178/ 82 mmHg Reason For Study: Congestive Heart Failure Ordering Physician: HOSPITALIST [facility] Performed By: Dave Yeager Referring Physician: BERTA GILL Interpretation Summary The left ventricle is normal in size. Left ventricular wall thickness is borderline increased. The ejection fraction is estimated to be 55-60%. Left ventricular wall motion is normal. Assessment of diastolic parameters suggests a pseudonormalization pattern, consistent with elevated filling pressures. The right ventricle is normal in size, thickness and function. The IVC is of normal diameter and collapses greater than 50% with a sniff. This suggests a low right atrial pressure of 3 mm Hg. There is no significant valvular heart disease. No other echocardiographic abnormalities seen. Brief History HPI obtained by on 07/30 Patient was seen with the patella historical interpreter [place] case #[id number]. Patient's daughter then showed up and also help to interpret. Patient's daughter is Heidy who is fluent in Japanese and [place] Islander patient is a pleasant 61-year-old female history of hypertension diabetes mellitus who presented to [facility] emergency room complaining of constant chest pressure with an onset of one week ago. Patient also reported shortness of breath, diaphoresis, lower extremity swelling. Patient denied any cough, chills, fever , nausea or vomiting. Her symptoms were exacerbated by walking and by laying down. Patient was unable to sleep last night due to the discomfort in her chest. Agent went to the clinic across the street from [facility] where "she always goes". Patient was found to have a very high blood pressure and patient was sent to [facility] emergency room. In the emergency room patient was found to have systolic blood pressure of 215 and diastolic of 90. Patient was given nitroglycerin and Lasix. Patient was found to have rales and 2+ edema on exam patient chest x-ray was found to have reticular-nodular interstitial prominence similar to prior exam and may be related to pulmonary edema and/or atypical infection. Patient had trace bilateral pleural effusions. Dr. Bolton felt that the patient presented with respiratory distress and hypertension. She felt that her exam was consistent with congestive heart failure as well as her x-ray and lab work. As the pro B-type natriuretic peptide was 1832. Patient had improvement in her symptoms with nitroglycerin and Lasix. The patient was to receive some IV blood pressure medication however patient was admitted to the hospitalist service And was admitted to the hospitalist service for further evaluation and treatment. Hospital Course Patient was seen with the patella historical interpreter [place] case #[id number]. Patient's daughter then showed up and also helped to interpret. Patient's daughter is Heidy who is fluent in Japanese and [place] Islander patient is a pleasant 61-year-old female history of hypertension diabetes mellitus who presented to [facility] emergency room complaining of constant chest pressure with an onset of one week ago. Patient also reported shortness of breath, diaphoresis, lower extremity swelling. Patient denied any cough, chills, fever , nausea or vomiting. Her symptoms were exacerbated by walking and by laying down. Patient was unable to sleep last night due to the discomfort in her chest. Agent went to the clinic across the street from [facility] where "she always goes". Patient was found to have a very high blood pressure and patient was sent to [facility] emergency room. In the emergency room patient was found to have systolic blood pressure of 215 and diastolic of 90. Patient was given nitroglycerin and Lasix. Patient was found to have rales and 2+ edema on exam patient chest x-ray was found to have reticular-nodular interstitial prominence similar to prior exam and may be related to pulmonary edema and/or atypical infection. Patient had trace bilateral pleural effusions. Dr. Bolton felt that the patient presented with respiratory distress and hypertension. She felt that her exam was consistent with congestive heart failure as well as her x-ray and lab work. As the pro B-type natriuretic peptide was 1832. Patient had improvement in her symptoms with nitroglycerin and Lasix. The patient was to receive some IV blood pressure medication however patient was admitted to the hospitalist service And was admitted to the hospitalist service for further evaluation and treatment. acute problems # Hypertensive emergency with signs of end organ damage-pulmonary edema, acute CHF. no signs of ACS based on EKG no ischemic chg, serial trops were negative. It was noted that patient's BP regimen was optimal that pt was on two BB. pt was started on amlodipine, coreg was increased. HCTZ was resumed. pt required hydralazine po prn for SBP>180. Eventually BP was better controlled. symptoms were greatly improved.Since BP was still not in target, study for secondary HTN , added plasma renin, aldosterone. metanephrine, were sent. Renal doppler was undiagnostic, recommended MRA, Studies needs to be followed up in the clinic upon d.c #Acute on chronic diastolic congestive heart failure, TTE 07/31 showed normal EF , LVH, pseudonormalization pattern suggestive of diastolic dysfunction, no valvular dz. LVH likely in the setting of longstanding uncontrolled hypertension. pt underwent was on lasix 20iv bid, responded well,currently seems euvolemic upon dc, lasix was stopped. #Hyperlipidemia, continue statin #ORESTES, developed during admission, likely due to diuresis, NSAID. Cr was increased from 1.01 to 1.30 upon d/c, didn't improve with gentle bolus, pt did receive ibuprofen for headache intermittently. Given stable condition, no associated symptoms, it was thought to be safe for d/c. CMP will be repeated 2days prior to see . #mild transaminitis, new onset, it was thought to be medicine induced, polypharmacy, possibly diuretics.Given this uptrending LFTs, pt was asked to repeat CMP 2days prior to see PCP. pt denied any abdominal sx upon d/c. #DM, noticed a1c8.5, glimepride 1mg added to regimen upon d/c. Exam Vital Signs (Last) Date Time Temp Pulse Resp B/P Pulse Ox O2 Delivery O2 Flow Rate FiO2 08/04/16 10:56 67 08/04/16 10:15 36.6 16 154/73 95 Room Air Exam NAD, comfortably laying down on the bed no JVD, MMM, no LAD RRR, nl s1, s2 no mrg bibasilar crackles S,ND,NT,normoactive BS+ warm, trace pitting edema, pulses 2/2 Test 07/30/16 13:30 07/30/16 15:18 07/31/16 05:47 07/31/16 09:25 Prothrombin Time 10.2sec (8.1-12.5) Prothromb Time International Ratio 0.95ratio Hold Lazo Top Tube Received (Received) Urine Color Straw (YELLOW) Urine Appearance Clear (CLEAR,HAZY) Urine pH 6.5 (5.0-8.0) Urine Specific [place] 1.020 (1.003-1.035) Urine Protein 100mg/dL (NEG,TRACE) Urine Glucose (UA) 250mg/dL (NEGATIVE) Urine Ketones Negativemg/dL (NEGATIVE) Urine Occult Blood Trace (NEGATIVE) Urine Nitrite Negative (NEGATIVE) Urine Bilirubin Negative (NEGATIVE) Urine Urobilinogen Normalmg/dL (NORMAL) Urine Leukocyte Esterase Negative (NEGATIVE) Urine RBC 0-2/hpf (0-2) Urine WBC 0-5/hpf (0-5) Urine Epithelial Cells Occasional/hpf (NONE-MOD) Urine Crystals None seen (NONE SEEN) Urine Bacteria None/hpf (NONE-FEW) Urine Hyaline Casts Occasional/lpf (NONE) Urine Granular Casts None seen (NONE SEEN) Urine Waxy Casts None seen (NONE SEEN) Urine Red Blood Cell Casts None seen (NONE SEEN) Urine White Blood Cell Casts None seen (NONE SEEN) Urine Mucus None seen (None Seen) Urine Trichomonas None seen (NONE SEEN) Urine Yeast None (NONE SEEN) Urinalysis Comment None Urine Culture Reflexed Not indicated Phosphorus Level 4.6mg/dL (2.5-4.9) Thyroid Stimulating Hormone (TSH) 1.870uIU/mL (0.450-4.500) Troponin T 0.010ug/L (0.0-0.011) Test 07/31/16 14:40 08/02/16 05:35 08/02/16 10:10 08/02/16 12:50 Reticulocyte Count,Calculated 1.7% (0.6-2.6) Hemoglobin A1c 8.2% (4.8-5.6) Iron Level 30ug/dL (35-150) Total Iron Binding Capacity 281ug/dL (250-450) Percent Iron Saturation 11%sat (15-50) Unsaturated Iron Binding 250.9ug/dL Ferritin 97ng/mL (13-150) Vitamin B12 Level 302pg/mL (211-946) Folate > 19.9ng/mL (>3.0) Triglycerides Level 200mg/dL (0-149) Cholesterol Level 156mg/dL (100-199) LDL Cholesterol, Calculated 72.000mg/dL (0-99) VLDL Cholesterol 40.000mg/dL HDL Cholesterol 44mg/dL (>39) Cholesterol/HDL Ratio 3.55 (0.0-4.4) Test 08/04/16 05:40 08/04/16 12:25 White Blood Count 4.6th/mm3 (3.8-10.1) Red Blood Count 3.25mil/mm3 (3.90-5.20) Hemoglobin 9.1g/dL (12.0-15.6) Hematocrit 28.9% (35.0-46.0) Mean Corpuscular Volume 88.9fL (81-100) Mean Corpuscular Hemoglobin 28.0pg (27.0-35.0) Mean Corpuscular Hemoglobin Concent 31.5% (32.0-37.0) Red Cell Distribution Width 12.5% (12.3-15.4) Platelet Count 161bil/L (150-400) Neutrophils (%) (Auto) 50.4% (40-74) Lymphocytes (%) (Auto) 34.1% (14-46) Monocytes (%) (Auto) 10.8% (4-12) Eosinophils (%) (Auto) 4.1% (0-5) Basophils (%) (Auto) 0.4% (0-3) Magnesium Level 1.9mg/dL (1.6-2.6) Pro-B-Type Natriuretic Peptide 295.8pg/mL (0-287) Discharge Medications Discharge Medications Amlodipine (Amlodipine) 5 Mg Tablet 10 MG PO HS Prescribed by: EBONI VARGAS MD Aspirin (Aspirin) 81 Mg Tablet 81 MG PO DAILY Prescribed by: EBONI VARGAS MD Atorvastatin Calcium (Atorvastatin Calcium) 20 Mg Tablet 20 MG PO HS Prescribed by: EBONI VARGAS MD Carvedilol (Carvedilol) 25 Mg Tablet 25 MG PO BIDWM Prescribed by: EBONI VARGAS MD Glimepiride (Glimepiride) 1 Mg Tablet 1 MG PO DAILYAC Prescribed by: EBONI VARGAS MD Hydrochlorothiazide (Hydrochlorothiazide) 25 Mg Tablet 25 MG PO DAILY Prescribed by: EBONI VARGAS MD Losartan Potassium (Losartan Potassium) 100 Mg Tablet 100 MG PO DAILY Prescribed by: EBONI VARGAS MD Metformin (Glucophage) 1,000 Mg Tablet 1,000 MG PO BID Prescribed by: EBONI VARGAS MD Additional med instructions Blood pressure regimen: Coreg 25mg twice a day Losartan 100mg daily in the morning amlodipine 10mg in the evening Hydrochlorothiazide 25mg in the morning Diabetes regimen continue metformin 1000mg twice a day Glimepride 1mg daily in the morning, added to control your sugar better. continue atorvastatin 20mg at bed time stop taking ibuprofen to protect your kidneys take [id number] daily to prevent stroke or heart attack in the future. Followup Plan Disposition: home Discharge Diet: Low fat, Low Sodium, Heart Healthy, Diabetic Discharge Activity: No restrictions Patient Instructions You were hospitalized with difficulty breathing, uncontrolled blood pressure. Your blood pressure regimen was optimized. You also received water pill to remove jj in your lungs. Please note that you were consulted with dietitian regarding low-sodium, healthy diet, please follow the instruction. Pleas note that blood pressure control is the most important to prevent future similar episode. Get a blood pressure cuff and measure it once a day at a certain times, Please check your sugar first thing in the morning, bring those record to your doctor to adjust medicine. All of the instruction was discussed via park interpreter. Follow-up Provider: Demetria Chadwick Follow-up with PCP in: 2 weeks Time spent 65min copies to: Demetria Chadwick Jongwoo MD August 04, 2016 12:59
[2016-08-11 03:07] LABS: Aldosterone/Renin Ratio 6.1 (0.0-30.0); Renin Activity 0.179 ng/mL/hr (0.167-5.380)
== END 2016-08-04 14:00 | disposition home or self-care (01) | DRG 292 ==
LOC: SED 11:37 → MPC 16:22
PROVIDERS: ADMIT Internal Medicine Infectious Disease; ATTEND Internal Medicine Infectious Disease
DX: I50.33 Acute on chronic diastolic (congestive) heart failure (principal); N17.9 Acute kidney failure, unspecified; I16.0 Hypertensive urgency; E78.5 Hyperlipidemia, unspecified; I10 Essential (primary) hypertension; E11.9 Type 2 diabetes mellitus without complications; Z79.4 Long term (current) use of insulin